=== PATIENT | male | born 1965 | race Caucasian/White ===

== ENCOUNTER 2017-02-06 17:19 | Emergency (ER) | payer OTHER ==
[~2017-02-06] VITALS: Wt 105.0 kg
[2017-02-06] MEDS ORDERED: IBUPROFEN 600 MG TAB PO ONE (18:30)
[2017-02-06] MEDS ORDERED: LIDOCAINE 1% (MDV) 20 ML INJ SC ONE (18:30)
[2017-02-06] MEDS ORDERED: IBUP-1542 PO (18:37)
[2017-02-06] MEDS ORDERED: NEOM28OI TP (18:37)
--- NOTE | 2017-02-06 18:40 | ERD ---
ER Documentation Chief Complaint Date/Time DATE: 02/06/17 TIME: 18:38 Chief Complaint L GREAT TOE INGROWN NAIL WITH REDNESS AND PAIN FOR 3 DAYS. HPI This 51-year-old male presents with pain in the left big toe associated with ingrown nail. He denies any history of trauma, fevers, bleeding or discharge. ROS All systems reviewed and are negative except as per history of present illness. Medications Home Meds Active Scripts Neomycin [place]ral/Bacitrac Zn/Poly (Triple Antibiotic Ointment) 28 Gm Oint...g., 28 GM TP TID for 7 Days Prov:LUCA HICKEY MD 02/06/17 Ibuprofen* (Motrin*) 600 Mg Tab, 600 MG PO Q6, #15 TAB Prov:LUCA HICKEY MD 02/06/17 PMhx/Soc Medical and Surgical Hx: pt denies Medical Hx, pt denies Surgical Hx History of Surgery: No Anesthesia Reaction: No Hx Neurological Disorder: No Hx Respiratory Disorders: No Hx Cardiac Disorders: No Hx Psychiatric Problems: No Hx Miscellaneous Medical Probl: No Hx Alcohol Use: No Hx Substance Use: No Hx Tobacco Use: No Smoking Status: Never smoker Physical Exam Vitals Vital Signs Date Time Temp Pulse Resp B/P Pulse Ox O2 Delivery O2 Flow Rate FiO2 02/06/17 17:34 98.5 82 20 141/82 97 Physical Exam Const: [] Alert, not ill-appearing. Head: Atraumatic Eyes: Normal Conjunctiva ENT: Normal External Ears, Nose and Mouth. Neck: Full range of motion..~ No meningismus. Resp: Clear to auscultation bilaterally Cardio: Regular rate and rhythm, no murmurs Abd: Soft, non tender, non distended. Normal bowel sounds Skin: No petechiae or rashes Back: No midline or flank tenderness Ext: No cyanosis, or edema. The left big toe is ingrown toenail on the lateral aspect. Some slight surrounding irritation without bleeding, discharge is no bony tenderness or deformities. Neur: Awake and alert Psych: Normal Mood and Affect Results 24 hrs Current Medications Medications (Trade) Dose Ordered Sig/Bette Route PRN Reason Start Time Stop Time Status Last Admin Dose Admin Ibuprofen (Motrin) 600 mg ONCE ONCE PO 02/06/17 18:30 02/06/17 18:31 DC 02/06/17 18:11 Lidocaine (Xylocaine 1% (Mdv) 20 ml) 20 ml ONCE ONCE SC 02/06/17 18:30 02/06/17 18:31 DC Procedures/MDM Procedure note-the left big toe was prepped with Betadine. Digital block was performed via sterile technique. Anesthesia was obtained in the ingrown portion of the nail was removed using clamps and scissors. The wound was dressed and the patient tolerated procedure well. Patient was given ibuprofen for pain and will be discharged home with a prescription of ibuprofen and instructions for topical antibiotics and wound care. He should return for fevers, redness, new worsening symptoms. Suspicion is low for fracture, dislocation, foreign body, osteomyelitis, significant bacterial infection. Departure Diagnosis: Primary Impression: Ingrown toenail Patient Instructions: Ingrown Toenail, Excised Additional Instructions: Recheck for redness, fevers, new worsening symptoms. LUCA HICKEY MD Feb 06, 2017 18:40
== END 2017-02-06 19:00 | disposition home or self-care (01) ==
LOC: FTE 17:19
DX: L60.0 Ingrowing nail (principal)

== ENCOUNTER 2017-06-05 19:58 | Emergency (ER) | payer OTHER ==
[~2017-06-05] VITALS: Ht 170.2 cm; Wt 115.5 kg
[~2017-06-05 19:58] MED LIST: IBUP-1542 PO; NEOM28OI TP
[2017-06-05 20:02] VITALS: Ht 170.2 cm; Wt 115.5 kg
--- NOTE | 2017-06-05 20:53 | ERA ---
ER Documentation Chief Complaint Date/Time DATE: 06/05/17 TIME: 20:45 Chief Complaint left big toe ingrown nail HPI 52-year-old male presenting with a chief complaint of an ingrown toenail of the left first digit that is mildly painful 1 week. Has not taken any medications. Denies discharge, fever, chills, erythema, change in sensation or movement. Patient has recently seen PCP and states he has no medical conditions. Denies diabetes. No recent travel. Vaccination status up-to- date. No other complaints and describes no other associated manifestations. ROS All systems reviewed and are negative except as per history of present illness. Medications Home Meds Active Scripts Cephalexin* (Keflex*) 500 Mg Capsule, 500 MG PO QID for 5 Days, CAP Prov:CITLALLI GONZALES PA-C 06/05/17 Sulfamethoxazole/Trimethoprim* (Bactrim Ds* Tablet) 1 Each Tablet, 1 TAB PO BID , #14 TAB Prov:CITLALLI GONZALES PA-C 06/05/17 Hydrocodone/Acetaminophen ([place] 5-325 Tablet) 1 Each Tablet, 1 TAB PO Q6H Y for PAIN, #7 TAB Prov:CITLALLI GONZALES PA-C 06/05/17 Neomycin Corral/Bacitrac Zn/Poly (Triple Antibiotic Ointment) 28 Gm Oint...g., 28 GM TP TID for 7 Days Prov:LUCA HICKEY MD 02/06/17 Ibuprofen* (Motrin*) 600 Mg Tab, 600 MG PO Q6, #15 TAB Prov:LUCA HICKEY MD 02/06/17 Allergies Allergies: Coded Allergies: No Known Allergy (Unverified , 06/05/17) PMhx/Soc History of Surgery: No Anesthesia Reaction: No Hx Neurological Disorder: No Hx Respiratory Disorders: No Hx Cardiac Disorders: No Hx Psychiatric Problems: No Hx Miscellaneous Medical Probl: No Hx Alcohol Use: No Hx Substance Use: No Hx Tobacco Use: No Smoking Status: Never smoker Physical Exam Vitals Vital Signs Date Time Temp Pulse Resp B/P Pulse Ox O2 Delivery O2 Flow Rate FiO2 06/05/17 20:02 97.3 86 20 131/63 100 Physical Exam Const: Obese 52-year-old male in no acute distress Head: Atraumatic Eyes: Normal Conjunctiva ENT: Normal External Ears, Nose and Mouth. Neck: Full range of motion..~ No meningismus. Resp: Clear to auscultation bilaterally Cardio: Regular rate and rhythm, no murmurs. Dorsalis pedis and posterior tibial pulses 2+ bilaterally. Abd: Soft, non tender, non distended. Normal bowel sounds Skin: Diffuse vitiligo. no petechiae. Back: No midline or flank tenderness Ext: Medial ingrown toenail of the first left lower digit. No bony abnormalities. No cyanosis, or edema Neur: Awake and alert. Neurovascularly intact bilaterally. Psych: Normal Mood and Affect Results 24 hrs Current Medications Medications (Trade) Dose Ordered Sig/Bette Route PRN Reason Start Time Stop Time Status Last Admin Dose Admin Lidocaine (Xylocaine 1% (Mdv) 20 ml) 20 ml ONCE ONCE SC 06/05/17 21:00 06/05/17 21:01 DC Procedures/MDM Overweight but otherwise healthy 52-year-old male presenting with a chief complaint of ingrown toenail as described in history and physical examination. Affected area was excised and overlying skin removed. No complications during the procedure. 4 mL of lidocaine without epi was used for digital block. No signs of infection. I have little suspicion for neurovascular compromise. I have spoke with the patient regarding their condition and future management. They have verbally responded that they understand their status and treatment plan. The patients vitals are stable, and their current condition is appropriate for discharge. The patient will be given discharge instructions with return precautions. Discharge medications: Keflex, Bactrim, [place] 5/325 mg Departure Diagnosis: Primary Impression: Ingrown left big toenail Condition: Stable Additional Instructions: Follow up with your PCP within the next 2 days for a wound check. If you are not able to make an appointment with the PCP, return to the emergency department. Return the the emergency department immediately if symptoms worsen or change. If you have any questions regarding medications, ask your pharmacist or us before you leave. If any adverse reactions occur while taking your medications, discontinue the treatment and return to the emergency department immediately. Take your medications as directed, and complete the entire course of treatment. CITLALLI GONZALES PA-C Jun 05, 2017 20:52
[2017-06-05] MEDS ORDERED: LIDOCAINE 1% (MDV) 20 ML INJ SC ONE (21:00)
[2017-06-05] MEDS ORDERED: CEPH-443 PO (22:15)
[2017-06-05] MEDS ORDERED: SULF1TAB31 PO (22:15)
[2017-06-05] MEDS ORDERED: HYDR-906 PO (22:15)
== END 2017-06-05 22:39 | disposition home or self-care (01) ==
LOC: FTE 19:58
DX: L60.0 Ingrowing nail (principal)